=== PATIENT | female | born 1970 | race Asian ===

== ENCOUNTER → 2017-03-03 | Outpatient (CLI) | payer OTHER ==
[~2017-03-03] MED LIST: IBUP-103 PO; IBUP-1050 PO; ONDA4TAB7 SL
== END | disposition home or self-care (01) ==
LOC: C.PAPS 13:49
PROVIDERS: ATTEND Obstetrics & Gynecology
DX: Z01.419 Encounter for gynecological examination (general) (routine) without abnormal findings (principal)

== ENCOUNTER 2017-09-28 11:42 | Emergency (ER) | payer OTHER ==
[~2017-09-28] VITALS: Ht 162.6 cm; Wt 59.3 kg
[2017-09-28 12:08] VITALS: TEMP 37.1; Ht 162.6 cm; Wt 59.3 kg
[2017-09-28] MEDS ORDERED: ONDANSETRON INJ 2 MG/ML 2 ML VIAL IV STA (12:29)
[2017-09-28] MEDS ORDERED: SODIUM CHLORIDE 0.9% 1000ML 1,000 ML IV STA (12:29)
[2017-09-28] MEDS ORDERED: MoRPHine SULFATE 4 MG/ML 1 ML CARP\\VIAL IV PRN (12:30)
[2017-09-28 12:44] LABS: BASO % 0.5 %; BASO ABS # 0.04 K/uL (0-0.2); EOS % 1.8 %; EOS ABS # 0.13 K/uL (0-0.5); HEMATOCRIT 36.5 % (37-47); HEMOGLOBIN 12.5 g/dL (12.0-16.0); IG# 0.01 K/uL (0.00-0.02); LYMPH % 28.4 %; MEAN CELL VOLUME 94.3 fL (80-100); MEAN CORPUSCULAR HEMOGLOBIN 32.3 pg (25-34); MEAN CORPUSCULAR HGB CONC 34.2 g/dl (32-36); MEAN PLATELET VOLUME 10.3 fL (7.4-10.4); MONO % 7.3 %; MONO ABS # 0.54 K/uL (0.11-0.59); NEUT % 61.9 %; NEUT ABS # 4.57 K/uL (1.4-6.5); PLATELET COUNT 289 K/uL (130-400); RED CELL DISTRIBUTION WIDTH CV 13.7 % (11.5-14.5); RED CELL DISTRIBUTION WIDTH SD 47.3 fL (36.4-46.3); WHITE BLOOD COUNT 7.39 K/uL (4.8-10.8)
--- NOTE | 2017-09-28 12:44 | EMERGENCY ROOM VISIT NOTE ---
History Report prepared by Kathrin: Ernesto Diaz Under the Supervision of: Dr. Nino Carpio D.O. First contact with patient: 12:24 Chief Complaint: ABDOMINAL PAIN Stated Complaint: BAD LOWER LEFT ABD PAIN/ CRAMPING Nursing Triage Summary: pt presents with with right lower abdominal pain going into the right flank difficult to empty bladder has an ulta sound scheduled for overian cyst History of Present Illness The patient is a 47 year old female who presents to the Emergency Room with complaints of sharp LLQ abdominal pain that began about 1 week ago. She rates her pain an 8/10 in severity. She has a past medical history of a ruptured ovarian cyst. She notes that about 1 month ago, she was diagnosed with bronchitis and has been improving in that regard. About 1 week ago, the patient noticed a hard lump to her LLQ with associated pain. She has never had a hernia before. Over this time, she has intermittently felt nauseated with episodes of vomiting. She states that nothing in particular makes her pain better or worse. She was recently started on control secondary to worsening menstrual cycle associated symptoms. She denies any chest pain, shortness of breath, diarrhea, weakness, or numbness. She notes that she is having some difficulty emptying her bladder. She also has a history of two previous miscarriages. Source of History: patient Onset: about 1 week ago Position: abdomen (LLQ) Symptom Intensity: 8/10 Quality: sharp Timing: constant Associated Symptoms: + nausea, + vomiting, No chest pain, No SOB, No diarrhea, No weakness, No numbness Review of Systems See HPI for pertinent positives & negatives. A total of 10 systems reviewed and were otherwise negative. Past Medical & Surgical No chronic medical problems Family History Cancer Seizures Social History Smoking Status: Never Smoker Smokeless Tobacco Use: No Alcohol Use: occasionally Drug Use: none Marital Status: Housing Status: lives with family Occupation Status: employed Current/Historical Medications Scheduled Multivitamin (Multivitamin), 1 TAB PO DAILY Ondasetron Odt (Zofran Odt), 4 MG SL Q6H Polyethylene Glycol 3350 (Miralax), 17 GM PO DAILY Scheduled PRN Oxycodone Immediate Rel Tab (Roxicodone Ir), 1-2 TAB PO Q4H PRN for Severe Pain Allergies Coded Allergies: Azithromycin (Unverified Allergy, Severe, SEVERE, INSTANT SWELLING OF LIPS , 09/28/17) Physical Exam Vital Signs Date Time Temp Pulse Resp B/P (MAP) Pulse Ox O2 Delivery O2 Flow Rate FiO2 09/28/17 15:36 57 18 175/88 100 Room Air 09/28/17 13:54 59 09/28/17 13:49 59 09/28/17 13:45 63 18 187/88 100 Room Air 09/28/17 12:08 37.1 62 18 179/103 99 Room Air Physical Exam GENERAL: Patient is awake, alert, and in no acute distress. Patient is somewhat anxious and uncomfortable appearing. EYES: The conjunctivae are clear. The pupils are round and reactive. EARS, NOSE, MOUTH AND THROAT: The nose is without any evidence of any deformity. Mucous membranes are moist tongue is midline NECK: The neck is nontender and supple. RESPIRATORY: Normal respiratory effort is noted there is no evidence of wheezing rhonchi or rales CARDIOVASCULAR: Regular rate and rhythm noted there no murmurs rubs or gallops normal S1 normal S2 GASTROINTESTINAL: The abdomen is soft. Bowel sounds are present in all quadrants. Abdomen is tender to the LLQ. There is a mass in the LLQ, which is unclear if it is related to a ventral hernia or an intraabdominal finding. MUSCULOSKELETAL/EXTREMITIES: There is no evidence of gross deformity full range of motion is noted in the hips and shoulders SKIN: There is no obvious evidence of any rash. There are no petechiae, pallor or cyanosis noted. NEUROLOGIC: Patient is awake alert and oriented x3. Medical Decision & Procedures ER Provider Diagnostic Interpretation: Radiology results as stated below per my review and radiologist interpretation: CT ABD/PELVIS IV AND ORAL CONT CLINICAL HISTORY: LLQ pain, ?mass COMPARISON STUDY: 10/25/2014 TECHNIQUE: Following the IV administration of 121 mL of Optiray-320, CT scan of the abdomen and pelvis was performed from the lung bases to the proximal femurs. Images are reviewed in the axial, sagittal, and coronal planes. IV contrast was administered without complication. A dose lowering technique was utilized adhering to the principles of ALARA. CT DOSE: 270.49 mGy.cm FINDINGS: Lower chest: The heart is normal in size and configuration, without pericardial effusion. The lung bases and pleural spaces are clear. Liver: The contrast-enhanced liver is normal in size, contour, and attenuation. There is no intrahepatic biliary ductal dilatation. The hepatic veins and portal veins are patent. Gallbladder: Unremarkable. Spleen: Normal in size and attenuation. Pancreas: Unremarkable. Adrenal glands: Unremarkable. Kidneys: There is a diminished left-sided nephrogram. There is moderate left-sided hydronephrosis and hydroureter. Bowel: There are no transition zones indicate bowel obstruction. There is no acute diverticulitis. There is mild fecal retention. There are no findings to indicate acute appendicitis. Peritoneum: There is no intraperitoneal free air or abdominal ascites. Vasculature: The abdominal aorta is normal in course and caliber. Adenopathy: None. Pelvic viscera: There is a 34 mm exophytic uterine fundal fibroid. There is a 9 cm septated cystic left adnexal mass (dilated fallopian tube versus septated cystic ovarian mass). Given the left-sided hydronephrosis and hydroureter, a malignancy must be considered. Gynecological consultation is recommended in follow-up Skeletal structures: No destructive osseous lesions are seen. IMPRESSION: 1. Moderate left-sided hydronephrosis and hydroureter with a diminished left-sided nephrogram 2. 9 cm septated cystic left adnexal lesion (septated cystic ovarian mass versus dilated fallopian tube). Given the left-sided ureteral obstruction, a malignancy must be considered. Gynecological consultation is recommended 3. 34 mm exophytic uterine fibroid Electronically signed by: Cedric Lugo M.D. 09/28/2017 3:09 PM Dictated Date/Time: 09/28/2017 2:59 PM Laboratory Results 09/28/17 12:34 Red Blood Count 3.87, Mean Corpuscular Volume 94.3, Mean Corpuscular Hemoglobin 32.3, Mean Corpuscular Hemoglobin Concent 34.2, Mean Platelet Volume 10.3, Neutrophils (%) (Auto) 61.9, Lymphocytes (%) (Auto) 28.4, Monocytes (%) (Auto) 7.3, Eosinophils (%) (Auto) 1.8, Basophils (%) (Auto) 0.5, Neutrophils # (Auto) 4.57, Lymphocytes # (Auto) 2.10, Monocytes # (Auto) 0.54, Eosinophils # (Auto) 0.13, Basophils # (Auto) 0.04 09/28/17 12:34 Test 09/28/17 12:34 09/28/17 13:43 White Blood Count 7.39 K/uL (4.8-10.8) Red Blood Count 3.87 M/uL (4.2-5.4) Hemoglobin 12.5 g/dL (12.0-16.0) Hematocrit 36.5 % (37-47) Mean Corpuscular Volume 94.3 fL (80-100) Mean Corpuscular Hemoglobin 32.3 pg (25-34) Mean Corpuscular Hemoglobin Concent 34.2 g/dl (32-36) Platelet Count 289 K/uL (130-400) Mean Platelet Volume 10.3 fL (7.4-10.4) Neutrophils (%) (Auto) 61.9 % Lymphocytes (%) (Auto) 28.4 % Monocytes (%) (Auto) 7.3 % Eosinophils (%) (Auto) 1.8 % Basophils (%) (Auto) 0.5 % Neutrophils # (Auto) 4.57 K/uL (1.4-6.5) Lymphocytes # (Auto) 2.10 K/uL (1.2-3.4) Monocytes # (Auto) 0.54 K/uL (0.11-0.59) Eosinophils # (Auto) 0.13 K/uL (0-0.5) Basophils # (Auto) 0.04 K/uL (0-0.2) RDW Standard Deviation 47.3 fL (36.4-46.3) RDW Coefficient of Variation 13.7 % (11.5-14.5) Immature Granulocyte % (Auto) 0.1 % Immature Granulocyte # (Auto) 0.01 K/uL (0.00-0.02) Anion Gap 7.0 mmol/L (3-11) Est Creatinine Clear Calc Drug Dose 56.2 ml/min Estimated GFR () 71.6 Estimated GFR (Non- 61.8 BUN/Creatinine Ratio 15.5 (10-20) Calcium Level 8.9 mg/dl (8.5-10.1) Total Bilirubin 0.4 mg/dl (0.2-1) Direct Bilirubin 0.1 mg/dl (0-0.2) Aspartate Amino Transf (AST/SGOT) 18 U/L (15-37) Alanine Aminotransferase (ALT/SGPT) 19 U/L (12-78) Alkaline Phosphatase 70 U/L (45-117) Total Protein 8.3 gm/dl (6.4-8.2) Albumin 3.8 gm/dl (3.4-5.0) Lipase 156 U/L (73-393) Carcinoembryonic Antigen 0.8 ng/ml (0-2.5) Human Chorionic Gonadotropin, Qual NEG (NEG) Urine Color YELLOW Urine Appearance CLEAR (CLEAR) Urine pH 6.5 (4.5-7.5) Urine Specific Kinde 1.004 (1.000-1.030) Urine Protein NEG (NEG) Urine Glucose (UA) NEG (NEG) Urine Ketones NEG (NEG) Urine Occult Blood NEG (NEG) Urine Nitrite NEG (NEG) Urine Bilirubin NEG (NEG) Urine Urobilinogen NEG (NEG) Urine Leukocyte Esterase NEG (NEG) Laboratory results per my review. Medications Administered Medications (Trade) Dose Ordered Sig/Lisandro Route Start Time Stop Time Status Last Admin Dose Admin Sodium Chloride 1,000 ml @ 999 mls/hr Q1H1M STAT IV 09/28/17 12:29 09/28/17 13:29 DC 09/28/17 12:57 999 MLS/HR Morphine Sulfate (MoRPHine SULFATE INJ) 4 mg Q15M PRN IV 09/28/17 12:30 09/28/17 16:42 DC 09/28/17 12:57 4 MG Ondansetron HCl (Zofran Inj) 4 mg NOW STAT IV 09/28/17 12:29 09/28/17 12:31 DC 09/28/17 12:57 4 MG ED Course 1224: The patient was evaluated in room A4. A complete history and physical examination were performed. 1229: Ordered Zofran Inj 4 mg IV, NSS 1,000 ml @ 999 mls/hr IV 1230: Ordered Morphine Sulfate 4 mg IV Medical Decision Differential diagnosis: Etiologies such as appendicitis, diverticulitis, PUD, biliary pathology, UTI, pancreatitis, obstruction, mesenteric ischemia, aortic pathology, infections, inflammatory bowel disease, renal colic, as well as others were entertained. Nursing notes reviewed. The patient is a 47-year-old female who presented to emergency department for evaluation of left lower quadrant abdominal pain. On my initial evaluation I thought the patient may have a paramedian hernia. She appeared to have a mass at the left lower quadrant. This does not appear to be associated with a hernia however. I discussed the patient's laboratory and radiographic studies with her. She was found to have a left pelvic mass which appears to be causing hydronephrosis. This appears to be arising from the ovary. The patient does have a primary [employer]IST[employer] physician. I discussed the patient's laboratory and radiographic studies with the covering COMMERCIAL ASSISTANT physician for that group. We were able to set the patient up with an appointment for the next day. She was encouraged to keep this appointment. I explained to her that this likely represents a massive require surgical intervention or at least a biopsy. She appears to be aware of this. She was treated with IV fluids in the emergency department. She was reevaluated multiple times. Medication Reconcilliation Current Medication List: was personally reviewed by me Blood Pressure Screening Patient's blood pressure: Elevated blood pressure Blood pressure disposition: Referred to PCP Consults Time Called: 1529 Consulting Physician: Dr Banks Returned Call: [phone] Dr Lizama arranged an appointment with Dr Vaughn for tomorrow AM at 10:30AM. Impression Primary Impression: Pelvic mass Additional Impressions: Hydronephrosis, left LLQ pain Scribe Attestation The scribe's documentation has been prepared under my direction and personally reviewed by me in its entirety. I confirm that the note above accurately reflects all work, treatment, procedures, and medical decision making performed by me. Departure Information Prescriptions Ondasetron Odt (ZOFRAN ODT) 4 Mg Tab 4 MG SL Q6H for Nausea, #15 TAB Prov: Nino Carpio, DO 09/28/17 Oxycodone Immediate Rel Tab (ROXICODONE IR) 5 Mg Tab 1-2 TAB PO Q4H Y for Severe Pain, #24 TAB Prov: Nino Carpio, DO 09/28/17 Polyethylene Glycol 3350 (MIRALAX) 1 Pow Pow 17 GM PO DAILY, #527 GM Prov: Nino Carpio, DO 09/28/17 Referrals David Rubio M.D. (PCP) Patient Instructions [facility] Problem Qualifiers
[2017-09-28] MEDS ORDERED: OPTIRAY 320 IV PRN (12:45)
[2017-09-28 13:04] LABS: ALBUMIN 3.8 gm/dl (3.4-5.0); CALCIUM 8.9 mg/dl (8.5-10.1); CREATININE 1.07 mg/dl (0.60-1.20); POTASSIUM 3.7 mmol/L (3.5-5.1)
[2017-09-28 13:06] LABS: TOTAL PROTEIN 8.3 gm/dl (6.4-8.2)
[2017-09-28] MEDS ORDERED: MULT-506 PO (13:31)
--- NOTE | 2017-09-28 15:10 | DIAGNOSTIC IMAGING REPORT ---
CT ABD/PELVIS IV AND ORAL CONT CLINICAL HISTORY: LLQ pain, ?mass COMPARISON STUDY: 10/25/2014 TECHNIQUE: Following the IV administration of 121 mL of Optiray-320, CT scan of the abdomen and pelvis was performed from the lung bases to the proximal femurs. Images are reviewed in the axial, sagittal, and coronal planes. IV contrast was administered without complication. A dose lowering technique was utilized adhering to the principles of ALARA. CT DOSE: 270.49 mGy.cm FINDINGS: Lower chest: The heart is normal in size and configuration, without pericardial effusion. The lung bases and pleural spaces are clear. Liver: The contrast-enhanced liver is normal in size, contour, and attenuation. There is no intrahepatic biliary ductal dilatation. The hepatic veins and portal veins are patent. Gallbladder: Unremarkable. Spleen: Normal in size and attenuation. Pancreas: Unremarkable. Adrenal glands: Unremarkable. Kidneys: There is a diminished left-sided nephrogram. There is moderate left-sided hydronephrosis and hydroureter. Bowel: There are no transition zones indicate bowel obstruction. There is no acute diverticulitis. There is mild fecal retention. There are no findings to indicate acute appendicitis. Peritoneum: There is no intraperitoneal free air or abdominal ascites. Vasculature: The abdominal aorta is normal in course and caliber. Adenopathy: None. Pelvic viscera: There is a 34 mm exophytic uterine fundal fibroid. There is a 9 cm septated cystic left adnexal mass (dilated fallopian tube versus septated cystic ovarian mass). Given the left-sided hydronephrosis and hydroureter, a malignancy must be considered. Gynecological consultation is recommended in follow-up Skeletal structures: No destructive osseous lesions are seen. IMPRESSION: 1. Moderate left-sided hydronephrosis and hydroureter with a diminished left-sided nephrogram 2. 9 cm septated cystic left adnexal lesion (septated cystic ovarian mass versus dilated fallopian tube). Given the left-sided ureteral obstruction, a malignancy must be considered. Gynecological consultation is recommended 3. 34 mm exophytic uterine fibroid Electronically signed by: Cedric Lugo M.D. 09/28/2017 3:09 PM Dictated Date/Time: 09/28/2017 2:59 PM
[2017-09-28 15:36] VITALS: BP 175/88; PULSE 57; O2SAT 100
[2017-09-28] MEDS ORDERED: POLY335019 PO (15:52)
[2017-09-28] MEDS ORDERED: ONDA4TAB10 SL (15:52)
[2017-09-28] MEDS ORDERED: OXYC1TAB3 PO (15:52)
== END 2017-09-28 16:05 | disposition home or self-care (01) ==
LOC: C.EDB 11:45 → C.EDA 16:05
DX: R19.04 Left lower quadrant abdominal swelling, mass and lump (principal); N13.30 Unspecified hydronephrosis; R10.32 Left lower quadrant pain; Z82.0 Family history of epilepsy and other diseases of the nervous system